=== PATIENT | male | born 1990 | race Caucasian/White ===

== ENCOUNTER 2020-05-07 01:46 | Emergency (ER) | payer OTHER, SELFPAY ==
[2020-05-07 02:11] VITALS: BP 152/77; PULSE 88; RESP 18; TEMP 36.9; O2SAT 97; BMI 31.1
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
[2020-05-07 03:18] LABS: Appearance Urine CLEAR; Color Urine YELLOW; Glucose Urine UA NEG (NEG); Urine Blood NEG (NEG)
[2020-05-07 03:19] LABS: Leukocyte Esterase Urine NEG (NEG); Nitrite Urine NEG (NEG); Specific Gravity - Urine >= 1.030 (1.005-1.025); Urine Ketones NEG (NEG); Urine Protein NEG (NEG-TRACE)
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
== END 2020-05-07 04:03 | disposition home or self-care (01) ==
PROVIDERS: Emergency Provider Emergency Medicine
DX: I86.1 Scrotal varices (principal); R07.89 Other chest pain
CPT/HCPCS: 71046; 81003; 99283

== ENCOUNTER → 2020-05-17 15:55 | Outpatient (BNVA) | payer OTHER, SELFPAY | PROVIDERS: Visit Provider Urology | DX: Z76.89 Persons encountering health services in other specified circumstances (principal) | CPT/HCPCS: 99202 ==

== ENCOUNTER 2023-04-05 16:56 | Emergency (ER) | payer OTHER, SELFPAY ==
--- NOTE | ~2023-04-05 | XR_ITS ---
EXAMINATION: XR HIP, LEFT CLINICAL INFORMATION: Pain COMPARISON: None available. TECHNIQUE: Two views of the left hip. FINDINGS: No fracture. Alignment is anatomic. Hip joint space is maintained. Soft tissues are unremarkable. XR/XR hip LT w PEL1V IMPRESSION: No significant abnormality identified.
[2023-04-05 17:05] VITALS: BP 116/67; PULSE 71; RESP 18; TEMP 36.7; O2SAT 99; BMI 31.3
--- NOTE | 2023-04-05 17:05 | ED_ITS ---
HPI - General Adult General Chief complaint: Extremity Problem Stated complaint: L Leg Pain ? Pinched Nerve Time Seen by Provider: 04/05/23 19:38 Source: patient Mode of arrival: ambulatory Limitations: no limitations History of Present Illness HPI narrative: patient was playing basketball and now developed hip pain radiating down his leg. Denies a know injury. Onset (ago): day(s) Location: left and lower extremity Radiation: distal Severity: mild Related Data Previous Rx's Medication Instructions Recorded naproxen 500 mg tablet (Naprosyn) 500 mg PO BID #20 tabs 04/05/23 Allergies Allergy/AdvReac Type Severity Reaction Status Date / Time No Known Allergies Allergy Verified 05/17/20 16:03 Review of Systems Review of Systems: Yes all other systems are reviewed and are negative Neurologic: Denies Sensory deficit (Neuro) [facility] Social History Social History Advance Directives: No Advance Directives Information Provided: No Physical Exam ED Vital Signs: Vital Signs - 24 hr 04/05/23 17:05 Temperature 98.1 F Pulse Rate 71 Respiratory Rate 18 Blood Pressure 116/67 Pulse Oximetry 99 Oxygen Delivery Method Room Air BMI result Body Mass Index 31.3 Const General: healthy appearing Nutritional Appearance: average body habitus Orientation/consciousness: oriented to person and patient oriented x3 Limitations: no limitations HENMT Head: Yes normal to inspection Ears: external ears normal General nose exam: Normal external nose present Mouth: Normal oral and palatal mucosa present and oropharynx normal Throat: Yes posterior oropharynx normal Eyes General: appearance normal, both eyes and all related structures Neck Neck: Yes normal visual inspection Chest Chest palpation & inspection: normal inspection of the chest Resp Auscultation: clear to auscultation bilaterally Cardio Jugular venous distension: no JVD Rate: regular rate Rhythm: regular rhythm Heart sounds: S1 normal heart sound present and S2 normal heart sound present GI Inspection: Yes normal to inspection Palpation (GI): Soft to palpation, nontender and No hepatosplenomegaly present Auscultation: normal bowel sounds General: Yes no CVA tenderness Back/Spine/Pelvis Back: no CVA tenderness Skin General skin exam: no rashes or lesions noted Neuro General: oriented to person and patient oriented x3 Cranial nerves: Yes CN's II-XII intact bilaterally Motor exam (neuro): 5/5 motor strength present throughout Sensory Exam: No Sensory deficit (Neuro) Extrem Other: left hip pain to range of motion and palpation Psych Appearance: grossly normal Course Course Course Narrative: This is an RME: Additional HPI, ROS, PE not included below will be deferred to primary provider. 33 y o male presenting for evaluation of L hip pain radiating down front of left leg since yesterday, atraumatic but stated pain started after playing basketball the day prior. Denies numbness, tingling, changes in sensation, bladder or bowel incontinence, abdominal pain, chest pain, shortness of breath, dizziness. Ambulatory with a steady gait. Plan: [facility] Medications Administered Discontinued Medications Generic Name Dose Route Start Last Admin Trade Name Freq PRN Reason Stop Dose Admin Ketorolac Tromethamine 60 mg 04/05/23 19:43 04/05/23 19:54 Ketorolac Tromethamine 60 Mg/2 Ml Vial IM 04/05/23 19:44 60 mg ONCE ONE Administration Medical Decision Making Differential Diagnosis Differential Diagnoses: The differential diagnosis associated with the presentation includes (avulsion fracture, hip dislocation, hip strain were all considered) Independent Interpretation I performed an independent interpretation of an: Plain X-Ray (hip: no fracture) Prescription Management I considered prescription management with: Pain Medication (narcotic pain medication considered but NSAID is a much better choice) Discharge Plan Discharge Clinical Impression: Hip strain Qualifiers: Encounter type: initial encounter Laterality: left Qualified Code(s): S76.012A - Strain of muscle, fascia and tendon of left hip, initial encounter Patient Disposition: Home, Self-Care Instructions: Muscle Strain (ED) Prescriptions: New naproxen [Naprosyn] 500 mg tablet 500 mg PO BID Qty: 20 0RF Referrals: Physician,None [Primary Care Provider] - 5 days
[2023-04-05] MEDS: Ketorolac Tromethamine 60 MG/2 ML VIAL IM (19:54)
== END 2023-04-05 20:36 | disposition home or self-care (01) ==
PROVIDERS: Emergency Provider Emergency Medicine
DX: S76.012A Strain of muscle, fascia and tendon of left hip, initial encounter (principal); M79.605 Pain in left leg; M25.552 Pain in left hip; Y33.XXXA Other specified events, undetermined intent, initial encounter; Y93.67 Activity, basketball; Y92.310 Basketball court as the place of occurrence of the external cause; Y99.9 Unspecified external cause status
CPT/HCPCS: 73502; 96372; 99283; 99284; J1885